=== PATIENT | female | born 1985 | race Native Hawaiian/Other Pacific Islander ===

== ENCOUNTER 2022-01-14 07:14 | Inpatient (IN) | payer SELFPAY ==
[2022-01-14] MEDS ORDERED: LOPERAMIDE 2 MG CAP PO PRN (10:00)
[2022-01-14] MEDS ORDERED: OXYTOCIN DRIP 30 UNITS/500 ML BAG IV SCH ×2 (10:00)
[2022-01-14] MEDS ORDERED: CARBOPROST TROMETHAMINE 250 MCG/1 ML INJ IM PRN (10:00)
[2022-01-14] MEDS ORDERED: NALOXONE 0.4 MG/1 ML INJ IV PRN (10:00)
[2022-01-14] MEDS ORDERED: METHYLERGONOVINE MALEATE 0.2 MG/ML VIAL IM PRN (10:00)
[2022-01-14] MEDS ORDERED: OXYTOCIN 10 UNIT/1 ML INJ IM PRN (10:00)
[2022-01-14] MEDS ORDERED: miSOPROStol 200 MCG TAB PR PRN (10:00)
[2022-01-14] MEDS ORDERED: BUTORPHANOL 2 MG/1 ML INJ IV PRN ×2 (10:00)
[2022-01-14] MEDS ORDERED: LIDOCAINE (2%) 20 MG/1 ML VIAL 20 ML MDV INFILTRATI NR (10:00)
[2022-01-14] MEDS ORDERED: TERBUTALINE 1 MG/1 ML INJ SUB-Q PRN (10:00)
--- NOTE | 2022-01-14 10:10 | History and Physical Report ---
History of Present Illness Date of examination: 01/14/22 Date of admission: 01/14/2022 Chief complaint: Presents due to labor pains History of present illness: Early entry to care at [facility]; course complicated by morbid maternal obesity, +Chlamydia (treated with Neg. MEHNAZ); and GDM A1. 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 Family/Genetic History: diabetes (grandfather) Social history: - Obstetrical History Expected Date of Delivery: 01/19/22 Actual Gestation: 39 Week(s) 2 Day(s) : 4 Para: 3 Hx # Term Pregnancies: 3 Number of Living Children: 3 #1 Gender: Female year: 2,[birth year] Birthweight: 8 kg Method of Delivery: Vaginal Gestational age at delivery: 38 Complications: none #2 Infant Gender: Male year: 2[birth year] Birthweight: 3.969 kg Method of Delivery: Vaginal Gestational age at delivery: 39 Complications: none #3 Gender: Male year: 2,[birth year] Birthweight: 2.722 kg Method of Delivery: Vaginal Gestational age at delivery: 39 Complications: none Medications and Allergies Allergies Allergy/AdvReac Type Severity Reaction Status Date / Time No Known Allergies Allergy Unverified 01/14/22 08:30 Active Meds: Active Medications Butorphanol Tartrate (Butorphanol 2 Mg/1 Ml Inj) 1 mg IV Q2H PRN PRN Reason: Pain, Moderate(4-6) LABOR PAIN Butorphanol Tartrate (Butorphanol 2 Mg/1 Ml Inj) 2 mg IV Q2H PRN PRN Reason: Pain , Severe (7-10) Carboprost Tromethamine (Carboprost Tromethamine 250 Mcg/1 Ml Inj) 250 mcg IM ONCE PRN PRN Reason: Uterine Bleeding Ephedrine Sulfate (Ephedrine Sulfate 50 Mg/1 Ml Inj) 10 mg IV Q2M PRN PRN Reason: Hypotension Oxytocin/Sodium Chloride (Pitocin/Ns 30 Unit/500ml) 30 units in 500 mls @ 2 mls/hr IV TITR NICKY; Protocol Lactated Ringer's (Lactated Ringers) 1,000 mls @ 125 mls/hr IV DIRECT NICKY Oxytocin/Sodium Chloride (Pitocin/Ns 30 Unit/500ml) 30 units in 500 mls @ 40 mls/hr IV TITR NICKY; Protocol Lidocaine (Lidocaine (2%) 20 Mg/1 Ml Vial 20 Ml Mdv) 20 ml INFILTRATI ONCE ONE Stop: 01/14/22 10:01 Loperamide HCl (Loperamide 2 Mg Cap) 2 mg PO ONCE PRN PRN Reason: give with Hemabate Methylergonovine Maleate (Methylergonovine Maleate 0.2 Mg/Ml Vial) 0.2 mg IM ONCE PRN PRN Reason: Uterine Bleeding Mineral Oil (Mineral Oil 30 Ml Oral Liqd) 30 ml PO QHS PRN PRN Reason: Constipation Misoprostol (Misoprostol 200 Mcg Tab) 800 mcg ME ONCE PRN PRN Reason: Uterine Bleeding Naloxone HCl (Naloxone 0.4 Mg/1 Ml Inj) 0.1 mg IV Q2MIN PRN PRN Reason: Res Rate </= 8 or 02 SAT < 92% Oxytocin (Oxytocin 10 Unit/1 Ml Inj) 10 unit IM ONCE PRN PRN Reason: Uterine Bleeding Terbutaline Sulfate (Terbutaline 1 Mg/1 Ml Inj) 0.25 mg SUB-Q ONCE PRN PRN Reason: Hyperstimulation/Hypertonicity Review of Systems All systems: negative - Vital Signs Vital signs: Vital Signs Pulse Pulse Ox 82 98 01/14/22 07:51 01/14/22 07:51 Temp Pulse Resp BP Pulse Ox 87 105/56 98 01/14/22 10:01 01/14/22 09:40 01/14/22 10:01 - Physical Exam Breasts: Positive: normal Cardiovascular: Regular rate Lungs: Positive: Clear to auscultation, Normal air movement Abdomen: Positive: normal appearance, soft, normal bowel sounds Genitourinary (Female): Positive: normal external genitalia, normal perenium Vagina: Positive: normal moisture, discharge Uterus: Positive: enlarged Anus/Rectum: Positive: normal perianal skin Extremities: Positive: normal - Obstetrical FHR: category 1 Uterine Contraction Monitor Mode: External Cervical Dilatation: 3 (Vtx; Intact) Cervical Effacement Percentage: 80 station: -3 Uterine Contraction Pattern: Irregular Uterine Tone Measurement Phase: Resting Uterine Contraction Intensity: Moderate Results All other labs normal. Assessment and Plan A: IUP @ 39 2/7 Weeks Category I Tracing Morbid Maternal Obesity GDM A1 Advanced Maternal Age BPP: 66 Suspected Macrosomia GBS Negative P: Admit to L&D Per Routine Orders Accuchecks q 4 hours Pitocin Induction
--- NOTE | 2022-01-14 10:31 | Ultrasound Report ---
ULTRASOUND OBSTETRIC LIMITED ULTRASOUND BIOPHYSICAL PROFILE INDICATION / CLINICAL INFORMATION: prestation, size bpp, raza,wt. Clinical Gestational Age (GA) in weeks, days: 39, 2 TECHNIQUE: Transabdominal. COMPARISON: None available. FINDINGS: BREATHING MOVEMENT = 0 GROSS BODY MOVEMENT = 2 TONE = 2 QUALITATIVE AMNIOTIC FLUID VOLUME = 2 TOTAL BIOPHYSICAL SCORE = 6/8 HEART RATE (beats per minute): 145 AMNIOTIC FLUID INDEX (cm) = 18.1 (normal = 7-24 cm) PRESENTATION: Cephalic. ADDITIONAL FINDINGS: Estimated weight is 4024 g. Age by ultrasound is 39 weeks 4 days. IMPRESSION: 1. Biophysical Score = 6/8 . 0 points for breathing. 2. Estimated age is 39 weeks 4 days. 3. Estimated weight 4024 g. Signer Name: Clarke Thomas MD Signed: 01/14/2022 10:26 AM Workstation Name: [id number]
[2022-01-14] MEDS: LACTATED RINGERS 1,000 ML IV SCH ×2 (14:15→20:08)
[2022-01-14 15:47] LABS: Hemoglobin 12.7 gm/dl (10.1-14.3); Mean Corpuscular HGB Conc 34 % (30-34); Mean Corpuscular Volume 93 fl (79-97); Platelet Count 239 K/mm3 (140-440); Red Blood Count 4.08 M/mm3 (3.65-5.03); Red Cell Distribution Width 17.1 % (13.2-15.2)
--- NOTE | 2022-01-14 16:53 | Progress Note ---
Assessment and Plan A: IUP @ 39 2/7 Weeks Category I Tracing Morbid Maternal Obesity GDM A1 Advanced Maternal Age BPP: 03/18 Suspected Macrosomia GBS Negative P: Accuchecks q 4 hours Start Pitocin Induction Subjective - Subjective Date of service: 01/14/22 Interval history: Early entry to care at [facility]; course complicated by morbid maternal obesity, +Chlamydia (treated with Neg. MEHNAZ); and GDM A1. Patient reports: movement normal, contractions Objective - Vital Signs Vital Signs: Vital Signs - 12hr 01/14/22 01/14/22 01/14/22 07:51 07:55 07:56 Pulse Rate 82 71 77 Blood Pressure 130/68 O2 Sat by Pulse 98 98 Oximetry 01/14/22 01/14/22 01/14/22 08:01 08:06 08:11 Pulse Rate 81 82 74 Blood Pressure O2 Sat by Pulse 98 98 99 Oximetry 01/14/22 01/14/22 01/14/22 08:16 08:21 08:25 Pulse Rate 76 84 79 Blood Pressure 123/60 O2 Sat by Pulse 99 98 Oximetry 01/14/22 01/14/22 01/14/22 08:26 08:31 08:36 Pulse Rate 75 81 91 H Blood Pressure O2 Sat by Pulse 98 97 98 Oximetry 01/14/22 01/14/22 01/14/22 08:39 08:41 08:46 Pulse Rate 77 89 85 Blood Pressure 116/59 O2 Sat by Pulse 98 97 Oximetry 01/14/22 01/14/22 01/14/22 08:51 08:55 08:56 Pulse Rate 83 90 94 H Blood Pressure 129/83 O2 Sat by Pulse 99 98 Oximetry 01/14/22 01/14/22 01/14/22 09:01 09:06 09:10 Pulse Rate 87 86 78 Blood Pressure 120/67 O2 Sat by Pulse 97 98 Oximetry 01/14/22 01/14/22 01/14/22 09:11 09:16 09:21 Pulse Rate 70 82 74 Blood Pressure O2 Sat by Pulse 97 97 98 Oximetry 01/14/22 01/14/22 01/14/22 09:24 09:26 09:31 Pulse Rate 77 70 94 H Blood Pressure 118/65 O2 Sat by Pulse 98 98 Oximetry 01/14/22 01/14/22 01/14/22 09:36 09:40 09:41 Pulse Rate 87 83 90 Blood Pressure 105/56 O2 Sat by Pulse 98 98 Oximetry 01/14/22 01/14/22 01/14/22 09:46 09:51 09:56 Pulse Rate 96 H 84 85 Blood Pressure O2 Sat by Pulse 97 97 98 Oximetry 01/14/22 01/14/22 01/14/22 10:01 10:06 10:11 Pulse Rate 87 74 77 Blood Pressure O2 Sat by Pulse 98 98 97 Oximetry 01/14/22 01/14/22 01/14/22 10:16 10:21 10:26 Pulse Rate 79 98 H 79 Blood Pressure O2 Sat by Pulse 97 96 98 Oximetry 01/14/22 01/14/22 01/14/22 10:31 10:36 10:41 Pulse Rate 99 H 79 98 H Blood Pressure O2 Sat by Pulse 98 98 97 Oximetry 01/14/22 01/14/22 01/14/22 10:46 10:51 10:56 Pulse Rate 95 H 92 H 80 Blood Pressure O2 Sat by Pulse 99 97 97 Oximetry 01/14/22 01/14/22 01/14/22 11:01 11:06 11:11 Pulse Rate 69 84 97 H Blood Pressure O2 Sat by Pulse 99 98 99 Oximetry 01/14/22 01/14/22 01/14/22 11:16 11:21 11:26 Pulse Rate 86 88 87 Blood Pressure O2 Sat by Pulse 97 97 97 Oximetry 01/14/22 01/14/22 01/14/22 11:31 11:36 11:41 Pulse Rate 80 82 87 Blood Pressure O2 Sat by Pulse 97 97 97 Oximetry 01/14/22 01/14/22 01/14/22 11:46 11:51 11:56 Pulse Rate 93 H 86 72 Blood Pressure 92/51 O2 Sat by Pulse 98 96 97 Oximetry 01/14/22 01/14/22 01/14/22 12:01 12:06 12:11 Pulse Rate 86 91 H 89 Blood Pressure O2 Sat by Pulse 96 99 97 Oximetry 01/14/22 01/14/22 01/14/22 12:16 12:21 12:26 Pulse Rate 84 91 H 94 H Blood Pressure O2 Sat by Pulse 98 97 98 Oximetry 01/14/22 01/14/22 01/14/22 12:31 12:36 12:41 Pulse Rate 89 94 H 78 Blood Pressure O2 Sat by Pulse 96 98 98 Oximetry 01/14/22 01/14/22 01/14/22 12:46 12:51 12:59 Pulse Rate 107 H 93 H 88 Blood Pressure O2 Sat by Pulse 97 97 98 Oximetry 01/14/22 01/14/22 01/14/22 13:04 13:09 13:14 Pulse Rate 105 H 78 92 H Blood Pressure O2 Sat by Pulse 97 97 97 Oximetry 01/14/22 01/14/22 01/14/22 13:19 13:24 13:29 Pulse Rate 90 92 H 86 Blood Pressure O2 Sat by Pulse 99 97 98 Oximetry 01/14/22 01/14/22 01/14/22 13:34 13:39 13:44 Pulse Rate 79 91 H 84 Blood Pressure O2 Sat by Pulse 99 99 97 Oximetry 01/14/22 01/14/22 01/14/22 13:47 13:49 13:54 Pulse Rate 83 80 81 Blood Pressure 123/65 O2 Sat by Pulse 98 96 Oximetry 01/14/22 01/14/22 01/14/22 13:59 14:04 14:09 Pulse Rate 95 H 76 82 Blood Pressure O2 Sat by Pulse 98 97 97 Oximetry 01/14/22 01/14/22 01/14/22 14:14 14:19 14:24 Pulse Rate 74 104 H 75 Blood Pressure O2 Sat by Pulse 96 97 97 Oximetry 01/14/22 01/14/22 01/14/22 14:29 14:34 14:39 Pulse Rate 102 H 102 H 85 Blood Pressure O2 Sat by Pulse 96 97 97 Oximetry 01/14/22 01/14/22 01/14/22 14:44 14:49 14:54 Pulse Rate 104 H 83 82 Blood Pressure O2 Sat by Pulse 97 96 95 Oximetry 01/14/22 01/14/22 01/14/22 14:59 15:04 15:09 Pulse Rate 93 H 116 H 107 H Blood Pressure O2 Sat by Pulse 97 97 97 Oximetry 01/14/22 01/14/22 01/14/22 15:14 15:19 15:24 Pulse Rate 83 95 H 85 Blood Pressure O2 Sat by Pulse 98 97 97 Oximetry 01/14/22 01/14/22 01/14/22 15:29 15:34 15:39 Pulse Rate 93 H 115 H 79 Blood Pressure O2 Sat by Pulse 97 97 98 Oximetry 01/14/22 01/14/22 01/14/22 15:44 15:46 15:49 Pulse Rate 110 H 92 H 81 Blood Pressure 128/60 O2 Sat by Pulse 98 98 Oximetry 01/14/22 01/14/22 01/14/22 15:54 15:59 16:04 Pulse Rate 111 H 78 111 H Blood Pressure O2 Sat by Pulse 98 98 97 Oximetry 01/14/22 01/14/22 01/14/22 16:09 16:14 16:19 Pulse Rate 121 H 89 79 Blood Pressure O2 Sat by Pulse 98 98 98 Oximetry 01/14/22 01/14/22 01/14/22 16:24 16:29 16:34 Pulse Rate 109 H 118 H 86 Blood Pressure O2 Sat by Pulse 96 97 98 Oximetry 01/14/22 01/14/22 01/14/22 16:39 16:44 16:49 Pulse Rate 88 76 63 Blood Pressure O2 Sat by Pulse 97 97 99 Oximetry - Exam Breasts: normal Lungs: Clear to auscultation, Normal air movement Abdomen: Present: normal appearance, soft, normal bowel sounds Uterus: Present: normal, firm, fundal height above umbilicus FHR: category 1 Uterine Contraction Monitor Mode: External Cervical Dilatation: 3.5 (intact) Cervical Effacement Percentage: 60 station: -3 Uterine Contraction Pattern: Regular Uterine Tone Measurement Phase: Resting Uterine Contraction Intensity: Moderate Extremities: normal - Labs Labs: Abnormal Labs 01/14/22 14:00 RDW 17.1 H Laboratory Results - last 24 hr 01/14/22 14:00 WBC 8.6 RBC 4.08 Hgb 12.7 Hct 38.0 MCV 93 MCH 31 MCHC 34 RDW 17.1 H Plt Count 239
[2022-01-14] MEDS ORDERED: NalbUPHINE 10 MG/1 ML INJ IV PRN (21:39)
[2022-01-14] MEDS ORDERED: fentaNYL 100 MCG/2 ML INJ IV PRN (21:39)
[2022-01-14] MEDS ORDERED: ACETAMINOPHEN 325 MG TAB PO PRN (21:39)
[2022-01-14] MEDS ORDERED: MINERAL OIL 30 ML ORAL LIQD PO PRN (22:00)
[2022-01-14] MEDS ORDERED: NALOXONE 2 MG/2 ML INJ IV PRN (22:45)
[2022-01-14] MEDS ORDERED: ePHEDrine SULFATE 50 MG/1 ML INJ IV PRN (22:45)
--- NOTE | 2022-01-14 22:45 | Anesthesia Consultation ---
Anesthesia Consult and Med Hx Date of service: 01/14/22 - Airway Anesthetic Teeth Evaluation: Good ROM Head & Neck: Adequate Mental/Hyoid Distance: Adequate Mallampati Class: Class III Intubation Access Assessment: Possibly Difficult - Pulmonary Exam CTA: Yes - Cardiac Exam Cardiac Exam: RRR - Pre-Operative Health Status ASA Pre-Surgery Classification: ASA3 Proposed Anesthetic Plan: Epidural - Pulmonary Hx Asthma: No COPD: No Hx Pneumonia: No - Cardiovascular System Hx Hypertension: No - Central Nervous System Hx Seizures: No Hx Psychiatric Problems: No - Endocrine Hx Renal Disease: No Hx End Stage Renal Disease: No Hx Non-Insulin Dependent Diabetes: Yes Hx Hypothyroidism: No Hx Hyperthyroidism: No - Hematic Hx Anemia: No Hx Sickle Cell Disease: No - Other Systems Hx Alcohol Use: No Hx Obesity: Yes
[2022-01-14] MEDS ORDERED: fentaNYL-BUPIV 2 MCG/ML-0.125% 200 MCG/100 ML BAG EPIDURAL SCH (23:00)
[2022-01-14] MEDS ORDERED: INSULIN GLARGINE 100 UNITS/ML SUB-Q ONE (23:09)
[2022-01-14] MEDS: SODIUM CHLORIDE 0.9% 1000 ML 1,000 ML IV SCH (23:09)
[2022-01-14] MEDS: miSOPROStol 25 MCG TAB PO SCH (23:09)
[2022-01-15] MEDS ORDERED: ePHEDrine SULFATE 50 MG/1 ML INJ ONE (01:55)
[2022-01-15] MEDS: SODIUM CHLORIDE 0.9% 1000 ML 1,000 ML IV SCH ×2 (02:26→03:58)
--- NOTE | 2022-01-15 02:30 | Progress Note ---
Labor Epidural - Labor Epidural Start Time: 02:18 Stop Time: 02:23 Performed by:: STANLEY KUMAR Procedure: Patient is requesting epidural for labor pain. H&P, and labs reviewed. Procedure explained, questions answered, consent obtained. Patient in sitting position with blood pressure cuff and pulse ox on and working. Timeout performed immediately before start of procedure. Sterile Chloraprep prep/drape. 3 mL 1% lidocaine skin wheal at L[3]-L[4]. 17-gauge tuohy epidural needle advanced to [id number] with saline at 9 cm. 25-gauge spinal needle advanced until clear, free-flowing CSF. Intrathecal dexmedetomidine [5] mcg administered and needle removed. Epidural catheter advanced to 14 cm, negative aspiration for blood and csf, negative test dose 3 ml 1.5% lidocaine with epinephrine. Sterile sponge and tegaderm applied, followed by tape reinforcement. Patient tolerated procedure well.
[2022-01-15] MEDS: miSOPROStol 25 MCG TAB PO SCH (03:11)
[2022-01-15] MEDS: ePHEDrine SULFATE 50 MG/1 ML INJ IV PRN ×2 (03:13→03:22)
--- NOTE | 2022-01-15 05:12 | Event Note ---
Date: 01/15/22 CC: Early labor, gestational diabetes (poorly controlled) HPI: 36-year-old at 39-3/7 weeks gestation was admitted yesterday in early labor. No vaginal bleeding. No leakage of fluid. Good movement. Labor was augmented. O: BP= 117/66 Accucheck= 110 Contraction stress test= (-) EFM= category 1 TOCO= irregular SVE= 5/50%/-3 LABS: HgBA1c= 6.2 RAD: OB US Limited= EFW is 4024 g (88th %-ile). LEONARD= 18.1 cm. BPP= 6/8 IMP: 1.) 39 weeks 2.) GDMA1, poorly controlled 3.) macrosomia 4.) Maternal obesity 5.) AMA 6.) Augmentation of labor PLAN: 1.) Epidural in place for pain control. 2.) S/P Cytotec 25 mcg PO x2 doses for further cervical ripening. 3.) Restart Pitocin per protocol. AROM challenging secondary to high station and long vaginal length. Furthermore, I did not want a risk of cord prolapse at this time. 4.) As HgBA1c= 6.2, this patient's gestational diabetes is poorly controlled. Therefore, Lantus 30 units SQ x1 was administered last night. This translates to approximately insulin 1.25 units/hr. Accu-Cheks every 1 hour in active labor. Plan is to keep blood glucose levels between 79 and 99. Intravenous fluids were changed to normal saline. If blood glucose levels are below 79, then change IV fluids to D5 0.9 normal saline. 5.) The risk of shoulder dystocia was discussed with the patient.
--- NOTE | 2022-01-15 08:50 | Progress Note ---
Assessment and Plan A: IUP@ 39.3 wks with AMA macrosomia GDMA1 poorly controlled Obesity P: Continue orders Continue monitoring and Accuchecks Anticipate Subjective - Subjective Date of service: 01/15/22 Principal diagnosis: IUP@ 39.3 wks Patient reports: loss of fluid, movement normal, contractions Objective - Vital Signs Vital Signs: Vital Signs - 12hr 01/14/22 01/14/22 01/14/22 20:47 20:52 20:55 Temperature Pulse Rate 83 75 93 H Respiratory Rate Blood Pressure 125/65 O2 Sat by Pulse 97 98 Oximetry 01/14/22 01/14/22 01/14/22 20:57 21:02 21:07 Temperature Pulse Rate 73 79 75 Respiratory Rate Blood Pressure O2 Sat by Pulse 98 97 98 Oximetry 01/14/22 01/14/22 01/14/22 21:12 21:17 21:22 Temperature Pulse Rate 72 89 83 Respiratory 20 Rate Blood Pressure O2 Sat by Pulse 98 99 98 Oximetry 01/14/22 01/14/22 01/14/22 21:25 21:27 21:28 Temperature Pulse Rate 76 75 73 Respiratory Rate Blood Pressure 127/60 O2 Sat by Pulse 97 94 Oximetry 01/14/22 01/14/22 01/14/22 21:32 21:37 21:42 Temperature Pulse Rate 74 71 73 Respiratory Rate Blood Pressure O2 Sat by Pulse 96 96 95 Oximetry 01/14/22 01/14/22 01/14/22 21:47 21:52 21:57 Temperature Pulse Rate 75 68 68 Respiratory Rate Blood Pressure O2 Sat by Pulse 96 96 96 Oximetry 01/14/22 01/14/22 01/14/22 22:02 22:05 22:07 Temperature Pulse Rate 68 71 67 Respiratory Rate Blood Pressure O2 Sat by Pulse 96 94 97 Oximetry 01/14/22 01/14/22 01/14/22 22:12 22:17 22:22 Temperature Pulse Rate 71 71 71 Respiratory 18 Rate Blood Pressure O2 Sat by Pulse 97 98 96 Oximetry 01/14/22 01/14/22 01/14/22 22:27 22:32 22:37 Temperature Pulse Rate 71 71 76 Respiratory Rate Blood Pressure 191/90 O2 Sat by Pulse 98 98 98 Oximetry 01/14/22 01/14/22 01/14/22 22:42 22:47 22:52 Temperature Pulse Rate 73 74 64 Respiratory Rate Blood Pressure O2 Sat by Pulse 97 98 98 Oximetry 01/14/22 01/14/22 01/14/22 22:57 23:03 23:07 Temperature Pulse Rate 67 87 70 Respiratory Rate Blood Pressure 131/84 O2 Sat by Pulse 98 98 Oximetry 01/14/22 01/14/22 01/14/22 23:08 23:13 23:18 Temperature Pulse Rate 73 71 74 Respiratory Rate Blood Pressure O2 Sat by Pulse 97 98 98 Oximetry 01/14/22 01/14/22 01/14/22 23:23 23:28 23:33 Temperature Pulse Rate 72 79 71 Respiratory Rate Blood Pressure O2 Sat by Pulse 98 98 99 Oximetry 01/14/22 01/14/22 01/14/22 23:38 23:43 23:48 Temperature Pulse Rate 79 80 72 Respiratory Rate Blood Pressure O2 Sat by Pulse 100 100 99 Oximetry 01/14/22 01/14/22 01/15/22 23:50 23:55 00:00 Temperature Pulse Rate 63 83 86 Respiratory Rate Blood Pressure O2 Sat by Pulse 99 99 95 Oximetry 01/15/22 01/15/22 01/15/22 00:05 00:08 00:12 Temperature Pulse Rate 74 80 Respiratory Rate Blood Pressure O2 Sat by Pulse 99 100 98 Oximetry 01/15/22 01/15/22 01/15/22 00:16 00:21 00:24 Temperature 99.0 F Pulse Rate 73 73 Respiratory Rate Blood Pressure O2 Sat by Pulse 97 97 Oximetry 01/15/22 01/15/22 01/15/22 00:26 00:31 00:36 Temperature Pulse Rate 67 81 77 Respiratory Rate Blood Pressure O2 Sat by Pulse 97 97 97 Oximetry 01/15/22 01/15/22 01/15/22 00:41 00:46 00:51 Temperature Pulse Rate 73 87 68 Respiratory Rate Blood Pressure O2 Sat by Pulse 96 97 98 Oximetry 01/15/22 01/15/22 01/15/22 00:56 01:01 01:06 Temperature Pulse Rate 84 79 73 Respiratory Rate Blood Pressure O2 Sat by Pulse 97 97 97 Oximetry 01/15/22 01/15/22 01/15/22 01:11 01:16 01:21 Temperature Pulse Rate 95 H 87 72 Respiratory Rate Blood Pressure O2 Sat by Pulse 99 99 97 Oximetry 01/15/22 01/15/22 01/15/22 01:26 01:31 01:36 Temperature Pulse Rate 77 71 72 Respiratory Rate Blood Pressure O2 Sat by Pulse 97 99 97 Oximetry 01/15/22 01/15/22 01/15/22 01:41 01:45 01:46 Temperature Pulse Rate 77 67 82 Respiratory Rate Blood Pressure 139/70 O2 Sat by Pulse 98 98 Oximetry 01/15/22 01/15/22 01/15/22 01:51 01:56 02:01 Temperature Pulse Rate 84 64 81 Respiratory Rate Blood Pressure O2 Sat by Pulse 99 96 98 Oximetry 01/15/22 01/15/22 01/15/22 02:06 02:11 02:16 Temperature Pulse Rate 86 76 Respiratory Rate Blood Pressure O2 Sat by Pulse 98 97 90 Oximetry 01/15/22 01/15/22 01/15/22 02:20 02:21 02:22 Temperature Pulse Rate 76 80 78 Respiratory Rate Blood Pressure 146/66 124/58 O2 Sat by Pulse 99 Oximetry 01/15/22 01/15/22 01/15/22 02:24 02:26 02:28 Temperature Pulse Rate 81 83 69 Respiratory Rate Blood Pressure 121/60 140/63 133/58 O2 Sat by Pulse 98 Oximetry 01/15/22 01/15/22 01/15/22 02:30 02:31 02:32 Temperature Pulse Rate 67 75 71 Respiratory Rate Blood Pressure 119/59 108/59 O2 Sat by Pulse 98 Oximetry 01/15/22 01/15/22 01/15/22 02:34 02:36 02:38 Temperature Pulse Rate 71 77 72 Respiratory Rate Blood Pressure 108/56 125/64 116/56 O2 Sat by Pulse 99 Oximetry 01/15/22 01/15/22 01/15/22 02:40 02:41 02:42 Temperature Pulse Rate 81 81 84 Respiratory Rate Blood Pressure 123/64 116/55 O2 Sat by Pulse 98 Oximetry 01/15/22 01/15/22 01/15/22 02:44 02:46 02:48 Temperature Pulse Rate 76 73 71 Respiratory Rate Blood Pressure 117/58 112/58 113/56 O2 Sat by Pulse 98 Oximetry 01/15/22 01/15/22 01/15/22 02:50 02:51 02:52 Temperature Pulse Rate 70 66 65 Respiratory Rate Blood Pressure 116/55 O2 Sat by Pulse 98 98 Oximetry 01/15/22 01/15/22 01/15/22 02:57 03:02 03:07 Temperature Pulse Rate 73 74 68 Respiratory Rate Blood Pressure O2 Sat by Pulse 98 98 98 Oximetry 01/15/22 01/15/22 01/15/22 03:10 03:12 03:15 Temperature Pulse Rate 64 77 98 H Respiratory Rate Blood Pressure 98/51 82/45 87/51 O2 Sat by Pulse 96 Oximetry 01/15/22 01/15/22 01/15/22 03:16 03:17 03:19 Temperature Pulse Rate 70 70 70 Respiratory Rate Blood Pressure 91/50 97/53 O2 Sat by Pulse 98 Oximetry 01/15/22 01/15/22 01/15/22 03:21 03:22 03:23 Temperature Pulse Rate 86 87 80 Respiratory Rate Blood Pressure 97/48 91/47 O2 Sat by Pulse 96 Oximetry 01/15/22 01/15/22 01/15/22 03:25 03:27 03:28 Temperature Pulse Rate 88 71 72 Respiratory Rate Blood Pressure 98/49 120/51 O2 Sat by Pulse 98 Oximetry 01/15/22 01/15/22 01/15/22 03:32 03:37 03:42 Temperature Pulse Rate 69 87 69 Respiratory Rate Blood Pressure 110/55 106/51 O2 Sat by Pulse 98 97 98 Oximetry 01/15/22 01/15/22 01/15/22 03:43 03:47 03:52 Temperature Pulse Rate 69 89 80 Respiratory Rate Blood Pressure 102/49 104/49 O2 Sat by Pulse 97 98 Oximetry 01/15/22 01/15/22 01/15/22 03:57 04:02 04:07 Temperature Pulse Rate 92 H 77 83 Respiratory Rate Blood Pressure 103/54 98/51 O2 Sat by Pulse 98 97 97 Oximetry 01/15/22 01/15/22 01/15/22 04:12 04:16 04:17 Temperature Pulse Rate 76 88 79 Respiratory Rate Blood Pressure 109/56 O2 Sat by Pulse 98 98 Oximetry 01/15/22 01/15/22 01/15/22 04:22 04:27 04:31 Temperature Pulse Rate 87 78 75 Respiratory Rate Blood Pressure 108/52 O2 Sat by Pulse 98 97 Oximetry 01/15/22 01/15/22 01/15/22 04:32 04:37 04:42 Temperature Pulse Rate 80 71 81 Respiratory Rate Blood Pressure O2 Sat by Pulse 97 97 97 Oximetry 01/15/22 01/15/22 01/15/22 04:46 04:47 04:52 Temperature Pulse Rate 76 76 88 Respiratory Rate Blood Pressure 110/57 O2 Sat by Pulse 98 99 Oximetry 01/15/22 01/15/22 01/15/22 04:57 05:00 05:02 Temperature 99.2 F Pulse Rate 88 77 Respiratory Rate Blood Pressure 117/66 O2 Sat by Pulse 99 98 Oximetry 01/15/22 01/15/22 01/15/22 05:07 05:12 05:17 Temperature Pulse Rate 77 79 82 Respiratory Rate Blood Pressure O2 Sat by Pulse 98 97 98 Oximetry 01/15/22 01/15/22 01/15/22 05:22 05:27 05:32 Temperature Pulse Rate 74 77 83 Respiratory Rate Blood Pressure O2 Sat by Pulse 97 97 98 Oximetry 01/15/22 01/15/22 01/15/22 05:33 05:37 05:42 Temperature Pulse Rate 76 80 71 Respiratory Rate Blood Pressure 117/56 O2 Sat by Pulse 96 96 Oximetry 01/15/22 01/15/22 01/15/22 05:47 05:52 05:57 Temperature Pulse Rate 76 71 72 Respiratory Rate Blood Pressure O2 Sat by Pulse 96 97 96 Oximetry 01/15/22 01/15/22 01/15/22 06:02 06:03 06:07 Temperature Pulse Rate 75 71 77 Respiratory Rate Blood Pressure 105/53 O2 Sat by Pulse 96 96 Oximetry 01/15/22 01/15/22 01/15/22 06:10 06:12 06:17 Temperature Pulse Rate 85 79 76 Respiratory Rate Blood Pressure O2 Sat by Pulse 94 96 97 Oximetry 01/15/22 01/15/22 01/15/22 06:22 06:27 06:32 Temperature Pulse Rate 73 87 82 Respiratory Rate Blood Pressure O2 Sat by Pulse 96 98 97 Oximetry 01/15/22 01/15/22 01/15/22 06:34 06:37 06:42 Temperature Pulse Rate 80 81 88 Respiratory Rate Blood Pressure 113/57 O2 Sat by Pulse 97 98 Oximetry 01/15/22 01/15/22 01/15/22 06:47 06:52 06:57 Temperature Pulse Rate 79 82 84 Respiratory Rate Blood Pressure O2 Sat by Pulse 97 98 98 Oximetry 01/15/22 01/15/22 01/15/22 07:02 07:03 07:07 Temperature Pulse Rate 86 72 84 Respiratory Rate Blood Pressure 116/59 O2 Sat by Pulse 97 97 Oximetry 01/15/22 01/15/22 01/15/22 07:12 07:17 07:22 Temperature Pulse Rate 89 79 87 Respiratory Rate Blood Pressure 130/60 O2 Sat by Pulse 98 97 98 Oximetry 01/15/22 01/15/22 01/15/22 07:27 07:32 07:33 Temperature Pulse Rate 88 81 83 Respiratory Rate Blood Pressure 114/72 O2 Sat by Pulse 97 97 Oximetry 01/15/22 01/15/22 01/15/22 07:37 07:42 07:47 Temperature Pulse Rate 86 88 78 Respiratory Rate Blood Pressure O2 Sat by Pulse 98 98 97 Oximetry 01/15/22 01/15/22 01/15/22 07:52 07:57 08:02 Temperature Pulse Rate 89 83 82 Respiratory Rate Blood Pressure O2 Sat by Pulse 98 98 97 Oximetry 01/15/22 01/15/22 01/15/22 08:04 08:07 08:12 Temperature Pulse Rate 79 83 80 Respiratory Rate Blood Pressure 117/65 O2 Sat by Pulse 98 97 Oximetry 01/15/22 01/15/22 01/15/22 08:20 08:25 08:30 Temperature Pulse Rate 87 85 82 Respiratory Rate Blood Pressure O2 Sat by Pulse 98 100 97 Oximetry 01/15/22 01/15/22 01/15/22 08:34 08:35 08:40 Temperature Pulse Rate 75 78 83 Respiratory Rate Blood Pressure 128/73 O2 Sat by Pulse 98 99 Oximetry - Exam Breasts: deferred Abdomen: Present: normal appearance, soft, normal bowel sounds Vulva: both: normal Uterus: Present: normal FHR: auscultation normal, category 1 Uterine Contraction Monitor Mode: Internal Cervical Dilatation: 6 Cervical Effacement Percentage: 50 station: -3 Uterine Contraction Pattern: Regular Uterine Tone Measurement Phase: Resting Uterine Contraction Intensity: Strong/Firm Extremities: normal - Labs Labs: Abnormal Labs 01/14/22 01/14/22 01/14/22 08:52 14:00 14:00 RDW 17.1 H POC Glucose 110 H Hemoglobin A1c 6.2 H Laboratory Results - last 24 hr 01/14/22 01/14/22 01/14/22 08:52 14:00 14:00 WBC 8.6 RBC 4.08 Hgb 12.7 Hct 38.0 MCV 93 MCH 31 MCHC 34 RDW 17.1 H Plt Count 239 POC Glucose 110 H Hemoglobin A1c Blood Type O POSITIVE Antibody Screen Negative 01/14/22 01/14/22 01/15/22 14:00 21:50 06:31 WBC RBC Hgb Hct MCV MCH MCHC RDW Plt Count POC Glucose 95 101 Hemoglobin A1c 6.2 H Blood Type Antibody Screen
[2022-01-15] MEDS ORDERED: BUPIVACAINE/PF (0.25%) 2.5 MG/ML 10 ML VIAL INFILTRATI ONE (08:57)
[2022-01-15] MEDS ORDERED: LACTATED RINGERS 2,000 ML ONE (09:57)
--- NOTE | 2022-01-15 10:57 | Progress Note ---
Labor Epidural - Labor Epidural Start Time: 10:30 Stop Time: 10:43 Performed by:: RAJ HERNANDEZ Procedure: Patient is requesting replacement of epidural. She states she has not gotten any relief. H&P, labs were reviewed. All questions and concerns were answered. Informed consent was obtained. Timeout performed. Patient in sitting position on side of bed. Dressing and epidural catheter removed with tip intact. Sterile prep and drape was performed. 3 mL 1% lidocaine skin wheal at L [3]-L [4]. 17-gauge Tuohy epidural needle advanced to [id number] using air technique, [8.5cm]. 25-gauge spinal needle advanced, positive free-flowing CSF. Epidural catheter advanced to [14] cm. [negative] Aspiration, [negative] test dose. Sterile dressing applied. Patient tolerated procedure well.
[2022-01-15] MEDS ORDERED: BUTORPHANOL 2 MG/1 ML INJ IV PRN ×2 (11:18)
[2022-01-15] MEDS ORDERED: MINERAL OIL 30 ML ORAL LIQD PO PRN (11:18)
[2022-01-15] MEDS ORDERED: ACETAMINOPHEN 325 MG TAB PO PRN ×2 (11:18→12:51)
[2022-01-15] MEDS ORDERED: NalbUPHINE 10 MG/1 ML INJ IV PRN (11:18)
[2022-01-15] MEDS ORDERED: ONDANSETRON 4 MG/2 ML INJ IV PRN ×2 (11:18→12:51)
[2022-01-15] MEDS ORDERED: OXYTOCIN 10 UNIT/1 ML INJ IM PRN (11:18)
[2022-01-15] MEDS ORDERED: LACTATED RINGERS 1,000 ML IV SCH (11:30)
[2022-01-15] MEDS ORDERED: diphenhydrAMINE 25 MG CAP PO PRN (12:51)
[2022-01-15] MEDS ORDERED: LANOLIN/ZINC/DIMETHICONE (LANSINOH) 7 GM TP PRN (12:51)
[2022-01-15] MEDS ORDERED: PROMETHAZINE 25 MG RECT SUPP PR PRN (12:51)
[2022-01-15] MEDS ORDERED: WITCH HAZEL/ GLYCERIN PAD TP PRN (12:51)
[2022-01-15] MEDS ORDERED: PROMETHAZINE 25 MG TAB PO PRN (12:51)
[2022-01-15] MEDS ORDERED: MAGNESIUM HYDROXIDE (MOM) ORAL LIQD UDC PO PRN (12:51)
[2022-01-15] MEDS ORDERED: oxyCODONE /ACETAMINOPHEN 5-325MG TAB PO PRN (12:51)
--- NOTE | 2022-01-15 13:11 | Procedure Note ---
OB Delivery Note - Delivery Date of Delivery: 01/15/22 Surgeon: DEMETRIUS MCCORMACK Estimated blood loss: other (150cc) - Vaginal Delivery presentation: vertex Delivery position: OP Delivery induction: none Delivery augmentation: rupture of membranes, pitocin Delivery monitor: external FHT, external uterine, internal FHT, internal uterine Route of delivery: Delivery placenta: spontaneous Delivery cord: nuchal cord, 3 umbilical vessels Episiotomy: none Delivery laceration: 1st degree Delivery repair: vicryl Anesthesia: epidural Delivery comments: of a viable female infant in OP position. Nuchal cord x 1 was reduced over infant's head then head followed by infant's body was delivered with ease. Infant was placed on mom's chest for skin to skin bonding while nurse dried and stimulated the baby. Cord blood was obtained and given to the nurse. Delayed cord clamping x 1 min then cord was clamped x2 and FOB was guided in cutting the cord. Infant was taken to warmer by nurse for an initial asses 8/9. Spontaneous delivery of an intact placenta with 3cv. FF@ U3 with fundal massage and IV Pitocin. An exploration of tears revealed a 1st degree perineal lac which was repaired with a 2-[address]-1. Pt tolerated repair well. QBL 150cc FW [id number] Mom and baby were left in stable condition with nurse. - Infant A at 1 minute: 8 at 5 minutes: 9 Infant Gender: Female
[2022-01-15] MEDS: IBUPROFEN 800 MG TAB PO SCH ×2 (16:19→23:34)
[2022-01-16 01:26] LABS: Hematocrit 32.9 % (30.3-42.9); Hemoglobin 10.7 gm/dl (10.1-14.3)
[2022-01-16] MEDS: IBUPROFEN 800 MG TAB PO SCH ×4 (05:51→23:36)
[2022-01-16] MEDS ORDERED: TETANUS,DIPH,PERTUSS(ACELL) VACCINE 0.5 ML SYRINGE IM ONE (06:00)
--- NOTE | 2022-01-16 09:58 | Post Anesthesia Evaluation ---
- Post Anesthesia Evaluation Patient Participated: Yes Airway Patent: Yes Stable Respiratory Function: Yes Nausea/Vomiting: No Temp > 96.8F: Yes Pain Manageable: Yes Adequeate Hydration: Yes Anesthesia Complications: No Block Receding Appropriately: Yes Patient on Ventilator: No
[2022-01-16] MEDS ORDERED: MEASLES, MUMPS & RUBELLA 12,500 UNIT/0.5 ML VACCINE SUB-Q ONE (12:00)
[2022-01-16] MEDS ORDERED: FLU VACC QUAD 2021-22(6MOS UP)/PF 60 MCG/0.5 ML SYRINGE IM ONE (12:00)
--- NOTE | 2022-01-16 14:38 | Progress Note ---
Assessment and Plan PPD#1 , GDMA1 with blood sugars controlled and pt doing well 1. Routine care and discharge home in the am if pt remains stable All questions encouraged and answered. Subjective Date of service: 01/16/22 Principal diagnosis: PPD#1 Interval history: pt has no complaints. pt is breast feeding. Denies pelvic pain. pt wants to remain in hospital until tomorrow. Objective - Constitutional Vitals: Vital Signs - 12hr 01/16/22 01/16/22 01/16/22 05:51 06:51 07:58 Temperature 97.6 F Pulse Rate 77 Respiratory 18 18 18 Rate Blood Pressure 95/35 O2 Sat by Pulse 100 Oximetry O2 Sat by Pulse Oximetry [ Anterior Bilateral Throughout] 01/16/22 08:00 Temperature 97.6 F Pulse Rate 76 Respiratory 18 Rate Blood Pressure 98/46 O2 Sat by Pulse 99 Oximetry O2 Sat by Pulse 98 Oximetry [ Anterior Bilateral Throughout] General appearance: Present: no acute distress - Neck Neck: normal ROM - Respiratory Respiratory effort: normal - Breasts Breasts: deferred - Cardiovascular Rhythm: regular Extremities: No edema - Gastrointestinal General gastrointestinal: Present: soft, non-tender - Genitourinary Female genitourinary: other (Fundus firm 2cm below umbilicus and non-tender, lochia scant) - Integumentary Integumentary: warm, dry - Neurologic Neurologic: moves all extremities - Psychiatric Psychiatric: cooperative - Labs CBC & Chem 7: 01/16/22 00:57 Labs: Abnormal lab results 01/15/22 Range/Units 16:36 POC Glucose 131 H (70-105) mg/dL Medications & Allergies - Medications Allergies/Adverse Reactions: Allergies No Known Allergies Allergy (Unverified 01/14/22 08:30) Home Medications: Home Medications Medication Instructions Recorded Confirmed Last Taken Type No Known Home Medications [No 01/15/22 01/15/22 Unknown History Reported Home Medications] Active Medications: Generic Name Dose Route Start Last Admin Trade Name Freq PRN Reason Stop Dose Admin Acetaminophen 650 mg 01/15/22 12:51 Acetaminophen 325 Mg Tab PO Q4H PRN Pain MILD(1-3)/Fever >100.5/LINDO Bisacodyl 10 mg 01/15/22 12:51 Bisacodyl 10 Mg Rect Supp MD BID PRN Constipation Butorphanol Tartrate 1 mg 01/15/22 11:18 Butorphanol 2 Mg/1 Ml Inj IV Q2H PRN Pain, Moderate(4-6) LABOR PAIN Butorphanol Tartrate 2 mg 01/15/22 11:18 Butorphanol 2 Mg/1 Ml Inj IV Q2H PRN Pain , Severe (7-10) Carboprost Tromethamine 250 mcg 01/14/22 10:00 Carboprost Tromethamine 250 Mcg/1 Ml Inj IM ONCE PRN Uterine Bleeding Diphenhydramine HCl 25 mg 01/15/22 12:51 Diphenhydramine 25 Mg Cap PO Q6H PRN Itching Ephedrine Sulfate 10 mg 01/14/22 10:00 01/15/22 03:22 Ephedrine Sulfate 50 Mg/1 Ml Inj IV 10 mg Q2M PRN Administration Hypotension Oxytocin/Sodium Chloride 30 units in 500 mls @ 40 mls/hr 01/14/22 10:00 01/15/22 08:00 Pitocin/Ns 30 Unit/500ml IV 6 mls/hr TITR NICKY 6 mls/hr Titration Protocol Sodium Chloride 1,000 mls @ 125 mls/hr 01/14/22 22:30 01/15/22 03:58 Nacl 0.9% 1000 Ml IV 125 mls/hr DIRECT NICKY Administration Fentanyl/Bupivacaine/Sodium Chlor 200 mcg in 100 mls @ 12 mls/hr 01/14/22 23:00 01/15/22 05:03 Fentanyl-Bupiv 2 Mcg/Ml-0.125% EPIDURAL 12 mls/hr TITR NICKY Infusion Protocol Lactated Ringer's 1,000 mls @ 125 mls/hr 01/15/22 11:30 Lactated Ringers IV DIRECT NICKY Ibuprofen 800 mg 01/15/22 14:00 01/16/22 11:53 Ibuprofen 800 Mg Tab PO 800 mg Q6H NICKY Administration Magnesium Hydroxide 30 ml 01/15/22 12:51 Magnesium Hydroxide (Mom) Oral Liqd Udc PO HS PRN Constipation Mineral Oil 30 ml 01/15/22 11:18 Mineral Oil 30 Ml Oral Liqd PO QHS PRN Constipation Multi-Ingredient Ointment 1 applic 01/15/22 12:51 Lanolin/Zinc/Dimethicone (Lansinoh) 7 Gm TP PRN PRN Sore Nipples Nalbuphine HCl 10 mg 01/15/22 11:18 Nalbuphine 10 Mg/1 Ml Inj IV Q2H PRN Pain, Moderate (4-6) Naloxone HCl 0.1 mg 01/14/22 10:00 Naloxone 0.4 Mg/1 Ml Inj IV Q2MIN PRN Res Rate </= 8 or 02 SAT < 92% Naloxone HCl 0.2 mg 01/14/22 22:45 Naloxone 2 Mg/2 Ml Inj IV Q5M PRN Respiratory sedation Ondansetron HCl 4 mg 01/15/22 12:51 Ondansetron 4 Mg/2 Ml Inj IV Q8H PRN Nausea And Vomiting Oxycodone/Acetaminophen 1 tab 01/15/22 12:51 Oxycodone /Acetaminophen 5-325mg Tab PO Q6H PRN Pain, Moderate (4-6) Oxytocin 10 unit 01/15/22 11:18 Oxytocin 10 Unit/1 Ml Inj IM ONCE PRN Uterine Bleeding Promethazine HCl 25 mg 01/15/22 12:51 Promethazine 25 Mg Rect Supp MD Q6H PRN Nausea And Vomiting Promethazine HCl 25 mg 01/15/22 12:51 Promethazine 25 Mg Tab PO Q6H PRN Nausea And Vomiting Sodium Chloride 10 ml 01/15/22 13:00 Sodium Chloride 0.9% 10 Ml Flush Syringe IV PRN NICKY Terbutaline Sulfate 0.25 mg 01/14/22 10:00 Terbutaline 1 Mg/1 Ml Inj SUB-Q ONCE PRN Hyperstimulation/Hypertonicity Witch Rupali/Glycerin 1 each 01/15/22 12:51 Witch Rupali/ Glycerin Pad TP PRN PRN Hemorrhoid/cleansing/soothing
--- NOTE | 2022-01-17 01:44 | Progress Note ---
Assessment and Plan PPD#2 doing well 1. Discharge home Subjective Date of service: 01/17/22 Principal diagnosis: PPD#2 Interval history: pt has no complaints and is ready to go home today Objective - Constitutional Vitals: Vital Signs - 12hr 01/16/22 17:07 Temperature 97.6 F Pulse Rate 83 Respiratory 18 Rate Blood Pressure 103/55 O2 Sat by Pulse 99 Oximetry General appearance: Present: no acute distress - Respiratory Respiratory effort: normal - Breasts Breasts: deferred - Gastrointestinal General gastrointestinal: Present: soft, non-tender - Genitourinary Female genitourinary: other (Fundus firm below umbilicus without tenderness. Lochia small) - Neurologic Neurologic: moves all extremities - Psychiatric Psychiatric: cooperative - Labs CBC & Chem 7: 01/16/22 00:57 Medications & Allergies - Medications Allergies/Adverse Reactions: Allergies No Known Allergies Allergy (Unverified 01/14/22 08:30) Home Medications: Home Medications Medication Instructions Recorded Confirmed Last Taken Type No Known Home Medications [No 01/15/22 01/15/22 Unknown History Reported Home Medications] Active Medications: Generic Name Dose Route Start Last Admin Trade Name Freq PRN Reason Stop Dose Admin Acetaminophen 650 mg 01/15/22 12:51 Acetaminophen 325 Mg Tab PO Q4H PRN Pain MILD(1-3)/Fever >100.5/LINDO Bisacodyl 10 mg 01/15/22 12:51 Bisacodyl [address] BID PRN Constipation Butorphanol Tartrate 1 mg 01/15/22 11:18 Butorphanol 2 Mg/1 Ml Inj IV Q2H PRN Pain, Moderate(4-6) LABOR PAIN Butorphanol Tartrate 2 mg 01/15/22 11:18 Butorphanol 2 Mg/1 Ml Inj IV Q2H PRN Pain , Severe (7-10) Carboprost Tromethamine 250 mcg 01/14/22 10:00 Carboprost Tromethamine 250 Mcg/1 Ml Inj IM ONCE PRN Uterine Bleeding Diphenhydramine HCl 25 mg 01/15/22 12:51 Diphenhydramine 25 Mg Cap PO Q6H PRN Itching Ephedrine Sulfate 10 mg 01/14/22 10:00 01/15/22 03:22 Ephedrine Sulfate 50 Mg/1 Ml Inj IV 10 mg Q2M PRN Administration Hypotension Oxytocin/Sodium Chloride 30 units in 500 mls @ 40 mls/hr 01/14/22 10:00 01/15/22 08:00 Pitocin/Ns 30 Unit/500ml IV 6 mls/hr TITR NICKY 6 mls/hr Titration Protocol Sodium Chloride 1,000 mls @ 125 mls/hr 01/14/22 22:30 01/15/22 03:58 Nacl 0.9% 1000 Ml IV 125 mls/hr DIRECT NICKY Administration Fentanyl/Bupivacaine/Sodium Chlor 200 mcg in 100 mls @ 12 mls/hr 01/14/22 23:00 01/15/22 05:03 Fentanyl-Bupiv 2 Mcg/Ml-0.125% EPIDURAL 12 mls/hr TITR NICKY Infusion Protocol Lactated Ringer's 1,000 mls @ 125 mls/hr 01/15/22 11:30 Lactated Ringers IV DIRECT NICKY Ibuprofen 800 mg 01/15/22 14:00 01/16/22 23:36 Ibuprofen 800 Mg Tab PO 800 mg Q6H NICKY Administration Magnesium Hydroxide 30 ml 01/15/22 12:51 Magnesium Hydroxide (Mom) Oral Liqd Udc PO HS PRN Constipation Mineral Oil 30 ml 01/15/22 11:18 Mineral Oil 30 Ml Oral Liqd PO QHS PRN Constipation Multi-Ingredient Ointment 1 applic 01/15/22 12:51 Lanolin/Zinc/Dimethicone (Lansinoh) 7 Gm TP PRN PRN Sore Nipples Nalbuphine HCl 10 mg 01/15/22 11:18 Nalbuphine 10 Mg/1 Ml Inj IV Q2H PRN Pain, Moderate (4-6) Naloxone HCl 0.1 mg 01/14/22 10:00 Naloxone 0.4 Mg/1 Ml Inj IV Q2MIN PRN Res Rate </= 8 or 02 SAT < 92% Naloxone HCl 0.2 mg 01/14/22 22:45 Naloxone 2 Mg/2 Ml Inj IV Q5M PRN Respiratory sedation Ondansetron HCl 4 mg 01/15/22 12:51 Ondansetron 4 Mg/2 Ml Inj IV Q8H PRN Nausea And Vomiting Oxycodone/Acetaminophen 1 tab 01/15/22 12:51 Oxycodone /Acetaminophen 5-325mg Tab PO Q6H PRN Pain, Moderate (4-6) Oxytocin 10 unit 01/15/22 11:18 Oxytocin 10 Unit/1 Ml Inj IM ONCE PRN Uterine Bleeding Promethazine HCl 25 mg 01/15/22 12:51 Promethazine [address] Q6H PRN Nausea And Vomiting Promethazine HCl 25 mg 01/15/22 12:51 Promethazine 25 Mg Tab PO Q6H PRN Nausea And Vomiting Sodium Chloride 10 ml 01/15/22 13:00 Sodium Chloride 0.9% 10 Ml Flush Syringe IV PRN NICKY Terbutaline Sulfate 0.25 mg 01/14/22 10:00 Terbutaline 1 Mg/1 Ml Inj SUB-Q ONCE PRN Hyperstimulation/Hypertonicity Witch Rupali/Glycerin 1 each 01/15/22 12:51 Witch Rupali/ Glycerin Pad TP PRN PRN Hemorrhoid/cleansing/soothing
--- NOTE | 2022-01-17 01:45 | Discharge Summary ---
Providers - Providers Date of Admission: 01/15/22 11:18 Date of discharge: 01/17/22 Attending physician: HONEY KEMP MD Primary care physician: HONEY KEMP MD Hospitalization Reason for admission: IUP at term Delivery: Episiotomy: none Laceration: 1st degree complications: none Discharge diagnosis: IUP at term delivered, other (Gestational Diabetes) [place] baby: female Hospital course: Term pt with gestational DM admitted and had uncomplicated vag delivery. course uncomplicated and pt remained stable with blood sugars controlled. Pt wanted to remain in the hospital for 2days, hence discharge today. Condition at discharge: Good Disposition: 01 HOME / SELF CARE / HOMELESS - Discharge Diagnoses (1) (spontaneous vaginal delivery) Status: Acute (2) Gestational diabetes mellitus (GDM) Status: Acute Plan - Provider Discharge Summary Additional instructions: [] Smoking cessation referral if applicable(refer to patient education folder for contact #) [] Refer to [facility]'s [facility] Booklet Call your doctor immediately for: * Fever > 100.5 * Heavy vaginal bleeding ( >1 pad per hour) * Severe persistent headache * Shortness of breath * Reddened, hot, painful area to leg or breast * Drainage or odor from incision. * Keep incision clean and dry at all times and follow doctor's instructions regarding bathing/showering - Follow up plan Follow up: HONEY KEMP MD [Primary Care Provider] - 7 Days Forms: [facility] Discharge Summary
[2022-01-17] MEDS: IBUPROFEN 800 MG TAB PO SCH ×2 (05:46→11:07)
[2022-01-17 15:07] VITALS: BP 110/53
== END 2022-01-17 12:29 | disposition home or self-care (01) | DRG 807 ==
LOC: TRG 07:14 → APU 07:24 → LD 07:29 → TRG 01-15 11:18 → OB 01-15 15:46
PROVIDERS: ADMIT Obstetrics & Gynecology; ATTEND Obstetrics & Gynecology
PROC: 10E0XZZ Delivery of Products of Conception, External Approach (ICD-10-PCS; principal; 2022-01-15)
PROC: 3E0R3BZ Introduction of Anesthetic Agent into Spinal Canal, Percutaneous Approach (ICD-10-PCS; 2022-01-15)
PROC: 00HU33Z Insertion of Infusion Device into Spinal Canal, Percutaneous Approach (ICD-10-PCS; 2022-01-15)
PROC: 3E0234Z Introduction of Serum, Toxoid and Vaccine into Muscle, Percutaneous Approach (ICD-10-PCS; 2022-01-16)
DX: O24.429 Gestational diabetes mellitus in childbirth, unspecified control (principal); Z37.0 Single live birth; Z3A.39 39 weeks gestation of pregnancy; Z20.822 Contact with and (suspected) exposure to COVID-19; Z23 Encounter for immunization; O99.214 Obesity complicating childbirth; E66.01 Morbid (severe) obesity due to excess calories; O36.63X0 Maternal care for excessive fetal growth, third trimester, not applicable or unspecified; O69.81X0 Labor and delivery complicated by cord around neck, without compression, not applicable or unspecified; O70.0 First degree perineal laceration during delivery
CPT/HCPCS: 36415; 76816; 76819; 82962; 83036; 85014; 85018; 85027; 86850; 86900; 86901; 90471; 90707; 90715; G0378; J3490; Q0162; J0595; J1815; J2210; J2590; J7030; J7120; U0003